=== PATIENT | female | born 1980 | race African-American/Black ===

== ENCOUNTER → 2020-10-23 | Outpatient (CLI) | payer BC, OTHER | LOC: RAD 15:21 | PROVIDERS: ATTEND Family Medicine | DX: Z12.31 Encounter for screening mammogram for malignant neoplasm of breast (principal) ==

== ENCOUNTER → 2020-10-31 | Outpatient (CLI) | payer BC, OTHER ==
--- NOTE | 2020-11-06 11:06 | PATH ---
[facility] [address] [place] [address] PATHOLOGY RPT PROCEDURE Name: MARILY RUANO AURELIO Room #: REG Rachell M.R.#: [id number] Admission: 10/31/20 Date of : 78 Discharge: Report #: [id number] Path Case #: [id number] [facility] Accession Number: [id number] . 01 Material submitted: . breast - RIGHT BREAST MASS. Modifiers: right . 01 Clinical history: . RT 8:00 6CM . 02 Diagnosis: Breast "right 8:00 6 cm, needle biopsy: - Fibroepithelial lesion, most consistent with a fibroadenoma. - Please see comment. (AKILA:troy; 11/02/2020) S 11/06/2020 1053 Local . 02 Comment: Evaluation of the breast mass reveals a fibroepithelial proliferation, with features most consistent with a fibroadenoma. Although features of a more aggressive lesion are not appreciated in the current material, continued follow is suggested, as sampling phenomenon does not allow evaluation of the entire lesion. . The case is seen in co-review with Dr. Tiago Bishop on 11/03/2020 at 11:12. Dr. Bishop concurs with the diagnosis. . 02 Electronically signed: . Tonya Hoang MD, Pathologist NPI- [id number] . 01 Gross description: . The specimen is received in formalin, labeled "Marily Ruano, right breast 8:00 6 cm". Received are multiple needle cores of fibrofatty tissue measuring 1.0 x 1.0 x 0.2 cm in aggregate dimensions. The specimen is submitted entirely in cassettes A1 through A3. The cold ischemic time is 5 minutes. The total formalin fixation time is 31 hours and 15 minutes. (CAA; 11/01/2020) QAC/QAC 11/01/2020 1145 Local . 02 Pathologist provided ICD-10: D24.1, N62 . 02 CPT . 716103 Specimen Comment: A courtesy copy of this report has been sent to [phone] [place] [address] PATHOLOGY RPT PROCEDURE Name: MARILY RUANO AURELIO Room #: REG THONY Peterson#: [id number] Admission: 10/31/20 Date of : 78 Discharge: Report #: [id number] Path Case #: [id number] Specimen Comment: Report sent to Performed at: [address] [facility] [address], [place], [place] [id number] MD Elder Tyson MD Phone: [phone] Performed at: [address] [id number] MD Margaret Hernandez MD Phone: [phone]
== END | disposition home or self-care (01) ==
LOC: ULTRA 09:36
PROVIDERS: ATTEND Family Medicine
DX: D24.1 Benign neoplasm of right breast (principal); N62 Hypertrophy of breast; R92.1 Mammographic calcification found on diagnostic imaging of breast

== ENCOUNTER → 2021-10-24 | Outpatient (CLI) | payer BC, OTHER | LOC: BC 08:18 | PROVIDERS: ATTEND Family Medicine | DX: Z12.31 Encounter for screening mammogram for malignant neoplasm of breast (principal); N63.10 Unspecified lump in the right breast, unspecified quadrant ==

== ENCOUNTER → 2021-10-26 | Outpatient (CLI) | payer BC, OTHER | LOC: BC 09:21 | PROVIDERS: ATTEND Family Medicine | DX: N63.10 Unspecified lump in the right breast, unspecified quadrant (principal) ==